=== PATIENT | female | born 1990 | race Caucasian/White ===

== ENCOUNTER 2019-05-17 21:02 | Emergency (ER) | payer SELFPAY ==
[~2019-05-17] VITALS: Ht 167.6 cm; Wt 62.1 kg
[2019-05-17 21:07] VITALS: Ht 167.6 cm; Wt 62.1 kg
[2019-05-18 01:14] VITALS: BP 120/60
== END 2019-05-18 01:14 | disposition home or self-care (01) ==
LOC: ED 21:02
DX: M62.830 Muscle spasm of back (principal); M54.2 Cervicalgia; R42 Dizziness and giddiness; Z88.2 Allergy status to sulfonamides
CPT/HCPCS: J1885